=== PATIENT | male | born 1985 | race Native Hawaiian/Other Pacific Islander ===

== ENCOUNTER 2016-09-09 10:47 | Outpatient (CLI) | payer OTHER | END 2016-09-09 19:07 | disposition home or self-care (01) | LOC: RAD 10:47 | DX: M25.572 Pain in left ankle and joints of left foot (principal) ==

== ENCOUNTER 2020-12-04 09:31 | Outpatient (CLI) | payer BC | END 2020-12-04 22:11 | disposition home or self-care (01) | LOC: LABW 09:31 | PROVIDERS: ATTEND Internal Medicine Gastroenterology | DX: K59.1 Functional diarrhea (principal) | CPT/HCPCS: 82705; 83630; 87015; 87045; 87324; 87328; 87329; 87449; 87899 ==